=== PATIENT | female | born 2005 | race Two or more races ===

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

== ENCOUNTER 2023-08-14 17:15 | Emergency (ER) | payer MEDICAID ==
[~2023-08-14] VITALS: Ht 170.2 cm; Wt 75.9 kg
[~2023-08-14 17:15] MED LIST changes: -AMOX-277 PO; +AMOX875T4 PO
[2023-08-14 18:46] VITALS: BP 114/59; PULSE 104; RESP 18; TEMP 98.8; O2SAT 96
[2023-08-14] MEDS ORDERED: AMOX500T3 PO ×3 (19:02→19:04)
== END 2023-08-14 19:09 | disposition home or self-care (01) ==
LOC: ER 17:15
DX: J02.0 Streptococcal pharyngitis (principal); Z79.899 Other long term (current) drug therapy